=== PATIENT | female | born 1980 ===

== ENCOUNTER 2018-05-12 17:55 | Emergency (ER) | payer OTHER ==
[2018-05-12 18:07] VITALS: BP 122/71; PULSE 90; TEMP 98.4
--- NOTE | 2018-05-12 18:07 | PDOC ---
Rapid Medical Evaluation Chief Complaint: Injury Time Seen by Provider: 05/12/18 18:06 Medical Evaluation: Allergies Allergy/AdvReac Type Severity Reaction Status Date / Time No Known Allergies Allergy Verified 05/12/18 18:05 05/12/18 18:06 I have performed a brief in-person evaluation of this patient. The patient presents with a chief complaint of: injury to right 5th digit today. Complaining of pain to 5th digit. Denies numbness or tingling Pertinent physical exam findings: NAD even and unlabored breathing right 5th digit with redness, +swelling, pain with movement I have ordered the following: xray ordered The patient will proceed to the ED for further evaluation. Discharge Disposition - Diagnosis Finger injury - Discharge Dispostion Condition at time of disposition: Stable - Referrals - Patient Instructions - Post Discharge Activity
--- NOTE | 2018-05-12 18:49 | PDOC ---
History of Present Illness - General Chief Complaint: Injury Stated Complaint: SLAM DOOR ON RIGHT HAND Time Seen by Provider: 05/12/18 18:06 History Source: Patient Exam Limitations: No Limitations - History of Present Illness Initial Comments: 05/12/18 18:41 Accidentally slammed hand in door incurring a crush injury to the distal aspect of her right fifth digit. Occurred: reports: just prior to arrival, this evening Severity: reports: mild Pain Location: reports: upper extremity Method of Injury: Yes: direct blow Modifying Factors: improves with: None Loss of Consciousness: no loss of consciousness Associated Symptoms (Fall): denies symptoms Past History - Travel Traveled outside of the country in the last 30 days: No Close contact w/someone who was outside of country & ill: No - Past Medical History Allergies/Adverse Reactions: Allergies Allergy/AdvReac Type Severity Reaction Status Date / Time No Known Allergies Allergy Verified 05/12/18 18:05 CVA: No COPD: No Psychiatric Problems: Yes (bipolar) Other medical history: attention deficit, hyperactive disorder,bipolar, mood d/o , - Surgical History Gastric Stapling: No Neurologic Surgery: No - Immunization History Immunization Up to Date: No - Suicide/Smoking/Psychosocial Hx Smoking History: Never smoked Have you smoked in the past 12 months: No Information on smoking cessation initiated: No Hx Alcohol Use: No Drug/Substance Use Hx: No Review of Systems - Review of Systems Able to Perform ROS?: Yes Is the patient limited Vincentian proficient: Yes Constitutional: Yes: Symptoms Reported, See HPI, Malaise Musculoskeletal: Yes: Symptoms Reported, See HPI, Joint Pain, Joint Swelling *Physical Exam - Vital Signs Last Vital Signs Temp Pulse Resp BP Pulse Ox 98.4 F 90 18 122/71 98 05/12/18 18:06 05/12/18 18:06 05/12/18 18:06 05/12/18 18:06 05/12/18 18:06 - Physical Exam General Appearance: Yes: Nourished, Appropriately Dressed. No: Apparent Distress HEENT: positive: LAMONTE Extremity: positive: Normal Capillary Refill, Normal Range of Motion, Tender. negative: Normal Inspection Integumentary: positive: Dry, Warm, Ecchymosis, Bruising, Other (superficial abrasion to the volar aspect of right fifth digit proximal phalanx. With ecchymosis extending from the PT IP into the MCP of right fifth digit. Has full range of motion of finger, and sensation intact distal to injury.). negative: Normal Color Neurologic: positive: director of conservation II-XII NML intact, Fully Oriented, Alert, Normal Mood/ Affect, Normal Response, Motor Strength 5/5 Moderate Sedation - Procedure Monitoring Vital Signs: Procedure Monitoring Vital Signs Temperature 98.4 F 05/12/18 18:06 Pulse Rate 90 05/12/18 18:06 Respiratory Rate 18 05/12/18 18:06 Blood Pressure 122/71 05/12/18 18:06 O2 Sat by Pulse Oximetry (%) 98 05/12/18 18:06 Progress Note - Progress Note Progress Note: Crush injury fifth digit, no fractures or dislocations. Treated with splints and anti-inflammatories *DC/Admit/Observation/Transfer Diagnosis at time of Disposition: Crush injury of hand Qualifiers: Encounter type: initial encounter Laterality: right Qualified Code(s): S67.21XA - Crushing injury of right hand, initial encounter - Discharge Dispostion Disposition: HOME Condition at time of disposition: Stable Decision to Admit order: No - Referrals Referrals: Jossue Salas MD [Staff Physician] - - Patient Instructions Printed Discharge Instructions: DI for Crush Injury Additional Instructions: Rest, ice to area on and off for 15 minutes 4-6 times a day Avoid heavy lifting or exercise until pain and swelling is resolved or until further directed Keep area highly elevated to reduce swelling Use splints/Bruno wrap as directed for 1 week until healed Followup with Doctor in one to 2 days if not improving, if significantly improved may wait one week for followup with Private DR. May use ibuprofen every 6 hours as needed for pain - Post Discharge Activity Forms/Work/School Notes: Back to Work
[2018-05-12] MEDS ORDERED: IBUPROFEN 400 MG TABLET (FP) PO ONE (18:58)
== END 2018-05-12 18:57 | disposition home or self-care (01) ==
LOC: JERFT 17:55
PROC: 2W3JX1Z Immobilization of Right Finger using Splint (ICD-10-PCS; principal; 2018-05-12)
DX: S67.196A Crushing injury of right little finger, initial encounter (principal); W23.0XXA Caught, crushed, jammed, or pinched between moving objects, initial encounter; Y93.89 Activity, other specified; Y92.198 Other place in other specified residential institution as the place of occurrence of the external cause; Y99.8 Other external cause status; F31.9 Bipolar disorder, unspecified; F90.9 Attention-deficit hyperactivity disorder, unspecified type; F39 Unspecified mood [affective] disorder
CPT/HCPCS: 73130-TC-RT-FY; 73140-TC-RT-FY; 99281-25